=== PATIENT | female | born 1970 | race Caucasian/White ===

== ENCOUNTER 2016-06-01 08:28 | Emergency (ER) | payer BC, OTHER ==
[~2016-06-01] VITALS: Ht 162.6 cm; Wt 65.8 kg
[2016-06-01 08:28] VITALS: BP 143/85; PULSE 91; RESP 18; TEMP 98.2; O2SAT 99
[2016-06-01 09:23] VITALS: BP 143/85; PULSE 88; RESP 18; TEMP 98.2; O2SAT 99
== END 2016-06-01 09:23 | disposition home or self-care (01) ==
LOC: SED 08:28
DX: S90.121A Contusion of right lesser toe(s) without damage to nail, initial encounter (principal); Z88.0 Allergy status to penicillin; Z88.5 Allergy status to narcotic agent; W18.40XA Slipping, tripping and stumbling without falling, unspecified, initial encounter; Y93.89 Activity, other specified; Y92.89 Other specified places as the place of occurrence of the external cause; Y99.8 Other external cause status
CPT/HCPCS: 99284

== ENCOUNTER 2020-02-24 09:01 | Emergency (ER) | payer BC, SELFPAY ==
[~2020-02-24] VITALS: Ht 165.1 cm; Wt 63.5 kg
[2020-02-24 09:08] VITALS: BP_SYST 198
--- NOTE | 2020-02-24 09:08 | NUR ---
Patient to ER bed 6 to gown for evaluation. Side rails up. Report given to BERNARDA DYER .
--- NOTE | 2020-02-24 09:12 | NUR ---
Patient presented to ER C/O Headache. Patient BIB by via wheelchair A&Ox4, afebrile, skin pink and warm, speaking in full sentances, Nausea, vomiting x1, denies diarrhea, pain 9/10. Patient states "this is the worst headache". PT reports using home BP monitor 185/120. Patient denies Hx of HTN, PT reports has high blood pressure and uses home BP monitor.
--- NOTE | 2020-02-24 09:13 | NUR ---
Patient transported to radiology via [facility], accompanied by Shannon Haload.
[2020-02-24] MEDS ORDERED: KETOROLAC TROMETHAMINE 30 MG VIAL IVP ONE (09:15)
[2020-02-24] MEDS ORDERED: niCARdipine 25 MG in D5W 240 ML IV ONE (09:15)
--- NOTE | 2020-02-24 09:25 | NUR ---
Returned from radiology, back to [facility].
--- NOTE | 2020-02-24 09:26 | NUR ---
# 18 gauge angiocath placed to LAC . Use of asceptic technique. Opsite placed over site. Blood return noted. Blood for lab drawn from site. Flushed with 10 cc of normal saline. No evidence of infiltration noted. Patient tolerated well.
[2020-02-24] MEDS ORDERED: niCARdipine 2.5 MG/ML, 10 ML VIAL (CARDENE) IV ONE (09:42)
[2020-02-24 09:55] LABS: BASOPHILS % (AUTO) 0.2 % (0.0-2.0); EOSINOPHILS % (AUTO) 0.8 % (0.0-4.0); HEMATOCRIT 38.4 % (36-48); HEMOGLOBIN 12.9 g/dL (12.0-16.0); LYMPHOCYTES # (AUTO) 1.6 K/uL (1.0-5.5); LYMPHOCYTES % (AUTO) 29.7 % (20.5-51.5); MEAN CORPUSCULAR HEMOGLOBIN 29 pg (27-31); MEAN CORPUSCULAR HGB CONC 34 % (32-36); MEAN CORPUSCULAR VOLUME 85 fL (79.0-98.0); MONOCYTES # (AUTO) 0.2 K/uL (0.0-1.0); MONOCYTES % (AUTO) 3.8 % (1.7-9.3); NEUTROPHILS # (AUTO) 3.5 K/uL (1.8-7.7); NEUTROPHILS % (AUTO) 65.5 % (40.0-70.0); PLATELET COUNT (AUTO) 175 K/uL (130-430); RED CELL DISTRIBUTION WIDTH 13.6 % (9.0-15.0); WHITE BLOOD COUNT (AUTO) 5.4 K/uL (4.8-10.8)
--- NOTE | 2020-02-24 10:12 | NUR ---
Nicardipine IV infusion discontinued per protocol, made Dr. Weinstein aware
--- NOTE | 2020-02-24 10:15 | NUR ---
PT ambulatory to toilet.
[2020-02-24 10:19] LABS: CALCIUM 8.5 mg/dL (8.4-11.0); CREATININE 0.71 mg/dL (0.55-1.30); POTASSIUM 3.4 mmol/L (3.5-5.1)
[2020-02-24 10:25] LABS: ALBUMIN 4.2 g/dL (3.4-4.8); TOTAL BILIRUBIN 0.1 mg/dL (0.0-1.0)
[2020-02-24 10:50] VITALS: BP_SYST 144
--- NOTE | 2020-02-24 10:50 | NUR ---
Patient to be transferred to [facility]. Is being transferred due to higher level of care. Receiving facility has accepting physician and available space. ER physician has signed transfer form. Patient or responsible green party has agreed to transfer and signed form. Patient belongings inventoried and will be sent with patient. Copy of nursing notes, lab reports, EKG, Physicians Orders and X-rays to be sent with patient. Report called to WILIAM at receiving facility. Receiving physician is DR ANA MARIA RYDER MD . ambulance service has been called for transfer. ETA is 20MIN .
[2020-02-24 11:10] LABS: PROTHROMBIN TIME 10.1 SECS (9.5-12.5)
== END 2020-02-24 10:50 | disposition short-term general hospital (02) ==
LOC: SED 09:01
DX: R51.9 Headache, unspecified (principal); I10 Essential (primary) hypertension; Z88.0 Allergy status to penicillin; Z88.5 Allergy status to narcotic agent; Z20.828 Contact with and (suspected) exposure to other viral communicable diseases
CPT/HCPCS: 36415; 70450; 76376; 80053; 84484; 85025; 85610; 85730; 87426; 93005; 96365; 96375; 99285; J1885; J7060

== ENCOUNTER 2022-04-30 07:43 | Emergency (ER) | payer BC ==
[~2022-04-30] VITALS: Ht 162.6 cm; Wt 65.3 kg
--- NOTE | 2022-04-30 07:50 | NUR ---
Patient to ER bed 8 to gown for evaluation. Side rails up.
[2022-04-30 07:56] VITALS: BP_SYST 169
--- NOTE | 2022-04-30 08:00 | NUR ---
DR PUCKETT IN ROOM FOR EXAM
--- NOTE | 2022-04-30 08:05 | NUR ---
PT PRESENTS TO ED BY SELF C/O FALL AT HOME ON THE STAIRS. PT STATES HER LOWER BACK HURTS AND HAS TINGLY NUMBNESS SENSATION BILATERALLY LOWER EXTREMITIES. PT VSS, NAD, EVEN AND UNLABORED RESPIRATIONS WILL CONT TO MONITOR, SAFETY RAIL X1
[2022-04-30] MEDS ORDERED: LIDO1ADH22 TP (10:18)
--- NOTE | 2022-04-30 10:30 | NUR ---
Patient given written and verbal discharge instructions and verbalizes understanding. ER MD discussed with patient the results and treatment provided. Patient in stable condition. ID arm band removed. Rx of LIDOPRO PATCH given. Patient educated on pain management and to follow up with PMD. Opportunity for questions provided and answered. Medication side effect fact sheet provided.
== END 2022-04-30 10:30 | disposition home or self-care (01) ==
LOC: SED 07:43
DX: S39.012A Strain of muscle, fascia and tendon of lower back, initial encounter (principal); R20.2 Paresthesia of skin; Z88.0 Allergy status to penicillin; Z88.5 Allergy status to narcotic agent; Z79.899 Other long term (current) drug therapy; W10.9XXA Fall (on) (from) unspecified stairs and steps, initial encounter; Y93.89 Activity, other specified; Y92.89 Other specified places as the place of occurrence of the external cause; Y99.8 Other external cause status
CPT/HCPCS: 72110; 72220-TC; 99284